=== PATIENT | female | born 1950 | race Caucasian/White ===

== ENCOUNTER 2022-11-08 07:41 | Emergency (ER) | payer MEDICARE, SELFPAY ==
--- NOTE | ~2022-11-08 | XR_ITS ---
EXAMINATION: XR hip LT 2V w AP pelvis INDICATION: Left hip pain TECHNIQUE: AP view of the pelvis and two views of the left hip are obtained. COMPARISON: None available FINDINGS: Bone alignment is normal. There is no fracture. There is mild to moderate osteoarthritis of the hips. Surgical clips are noted in the left abdomen. There is at least mild lumbar spondylosis. IMPRESSION: 1. Osteoarthritis of the hips without acute osseous abnormality. Reviewed, dictated and finalized at location B.
[2022-11-08 07:43] VITALS: BP 126/66; PULSE 75; RESP 18; TEMP 36.5; O2SAT 99
--- NOTE | 2022-11-08 09:41 | ED.EXTPRO ---
HPI - Extremity Problem General Chief complaint: Extremity Problem,Nontraumatic Stated complaint: left hip pain x 2 days Time Seen by Provider: 11/08/22 07:58 History of Present Illness HPI Narrative: 72-year-old female presented to the emergency department for evaluation of left hip pain. Patient is in town to help with her son who had a terminal illness. Patient states she possibly injured her left hip while she was walking but states he has also been helping her son transfer and may be strained herself during that. Patient reports on Sunday she began having increased left hip pain that radiates down the left leg. Patient denies any specific incident of falls or injuries. Patient reports the pain did worsen yesterday. Patient denies any associate numbness or weakness. Related Data Allergies Allergy/AdvReac Type Severity Reaction Status Date / Time No Known Allergies Allergy Verified 11/08/22 07:43 Review of Systems Review of Systems: All systems reviewed & are unremarkable except as noted in HPI and below Exam Narrative: APPEARANCE: Well appearing, no pain, no distress, well-nourished. HEAD: normocephalic, atraumatic. EYES: PERRLA/EOMI, conjunctivae clear. NOSE: Normal no drainage NECK: Supple. No adenopathy, no masses. RESPIRATORY: Airway patent, respirations nonlabored. Clear to auscultation bilaterally, no rales, rhonchi, wheezing. CARDIOVASCULAR: Regular rate and rhythm without murmurs rubs or gallops. ABDOMINAL: Soft, nontender, nondistended, normal bowel sounds MUSCULOSKELETAL: Moves all extremities. Strength/ROM intact, No edema, No calf tenderness. NEURO: Alert. Cranial nerves II through XII intact. Grossly intact SKIN: Warm, dry. Normal Color Course Course Emergency Course: 70-year-old female presented ED for evaluation of left hip pain. X-ray showed no acute fracture or dislocation. Patient was provided medications for pain control for sciatica. Patient and family were updated on the results of the work-up and plan for treatment. All questions and concerns were addressed. Vital Signs Vital signs: Vital Signs Temperature 97.7 F 11/08/22 07:43 Pulse Rate 75 11/08/22 07:43 Respiratory Rate 18 11/08/22 07:43 Blood Pressure 126/66 11/08/22 07:43 Pulse Oximetry 99 11/08/22 07:43 Oxygen Delivery Room Air 11/08/22 07:43 Temperature 97.7 F 11/08/22 07:43 Pulse Rate 75 11/08/22 07:43 Respiratory Rate 18 11/08/22 07:43 Blood Pressure 126/66 11/08/22 07:43 Pulse Oximetry 99 11/08/22 07:43 Oxygen Delivery Room Air 11/08/22 07:43 MDM - Extremity (Nontraumatic) Imaging Data Radiologist's impression: Impressions Hip/Pelvis X-Ray 11/08/22 08:19 IMPRESSION: 1. Osteoarthritis of the hips without acute osseous abnormality. Discharge Plan Discharge Clinical Impression: Sciatica Patient Disposition: Home, Self-Care Condition: Stable Instructions: Antibiotic Form, Sciatica (ED) Additional Instructions: Medrol Dosepak as directed. Flexeril for muscle spasm. Tylenol for pain control. If you need additional pain control then replace the Tylenol with [place]. Have close follow-up with your primary care physician. Prescriptions: New hydrocodone-acetaminophen 5-325 mg tablet 1 tablet PO Q12H PRN (Reason: pain) Qty: 10 0RF cyclobenzaprine 10 mg tablet 10 mg PO BID PRN (Reason: muscle spasm) Qty: 14 0RF methylprednisolone [Medrol (Jeanmarie)] 4 mg tablets,dose pack See Rx Instructions .ROUTE .COMPLEX Qty: 21 0RF Rx Instructions: orally per package directions Follow-up/Referrals: PHYSICIAN,[facility] OPERATOR [Primary Care Provider] - Jaguar Abarca MD [Physician] -
[2022-11-08] MEDS: KETOROLAC 30 MG/ML VIAL (*BKC) IM (09:54)
[2022-11-08] MEDS: HYDROcodone/acetaminophen (*CRX) 5-325 MG TABLET 1 TAB PO (09:54)
[2022-11-08] MEDS: CYCLOBENZAPRINE HCL 10 MG TABLET PO (09:58)
== END 2022-11-08 10:19 | disposition home or self-care (01) ==
PROVIDERS: Emergency Provider Emergency Medicine
DX: M54.32 Sciatica, left side (principal); M16.0 Bilateral primary osteoarthritis of hip
CPT/HCPCS: 73502; 96372; 99283; A9270; J1885